=== PATIENT | male | born 1955 | race Hispanic/Latino ===

== ENCOUNTER 2017-09-24 10:57 | Outpatient (CLI) | payer BC ==
[2017-09-24] MEDS ORDERED: DIPRIVAN 10 MG/ML IV ONE ×4 (12:22→14:22)
[2017-09-24] MEDS ORDERED: NACL 0.9% 1000 ML 1,000 ML ONE (12:22)
[2017-09-24] MEDS ORDERED: VERSED ONE (12:22)
[2017-09-24] MEDS ORDERED: DILAUDID ONE (12:23)
--- NOTE | 2017-09-24 15:28 | Anesthesia Consultation ---
Anesthesia Consult and Med Hx Date of service: 09/24/17 - Airway Anesthetic Teeth Evaluation: Good ROM Head & Neck: Adequate Mental/Hyoid Distance: Adequate Mallampati Class: Class III Intubation Access Assessment: Possibly Difficult - Pre-Operative Health Status ASA Pre-Surgery Classification: ASA3 Proposed Anesthetic Plan: MAC - Central Nervous System Hx Back Pain: Yes (right shoulder pain) - Other Systems Hx Obesity: Yes
--- NOTE | 2017-09-24 15:28 | Anesthesia Day of Surgery ---
Anesthesia Day of Surgery - Day of Surgery Patient Examined: Yes Patient H&P Reviewed: Yes Patient is NPO: Yes
[2017-09-24 16:04] VITALS: BP 147/84
--- NOTE | 2017-09-24 19:07 | Magnetic Resonance Report ---
FINAL REPORT PROCEDURE: MR UE JOINT RT WO CON TECHNIQUE: Magnetic resonance imaging of the RIGHT shoulder was performed using standard pulse sequences. CPT 05464 HISTORY: PAIN IN RIGHT SHOULDER COMPARISON: No prior studies are available for comparison. FINDINGS: Nonspecific cystic degenerative changes seen in the superior lateral aspect of the humeral head. Humeral head is high-riding. There is moderate hypertrophic degenerative change seen in the AC joint. Moderate-sized marginal osteophytic spurs project in the inferior aspect of the glenohumeral joint space. Multiple small subchondral cysts are seen in the articular surface of the humeral head. There is marked narrowing of the glenohumeral joint space. There is advanced chondromalacia present. There is mild heterogeneous increased signal seen in the supraspinatus tendon and focal areas of bright increased T2 signal in the distal supraspinatus tendon near its insertion and along the articular surface consistent with partial thickness tears. I do not see evidence of full-thickness tear or retraction. This extends into the superior aspect of the infra spinatus tendon along the articular surface. This is best visualized on sagittal images. This involves the infra spinatus tendon more than the supraspinatus tendon. Teres minor tendon and subscapularis tendon are intact. Long head of the biceps tendon is appropriately located within its groove. Biceps tendon appears intact. There appears to be mild heterogeneous increased signal in the labrum adjacent to the biceps anchor suggesting a SLAP type injury. Minimal joint effusion is present in the glenohumeral joint space. There is a moderate amount of fluid in the long head of the biceps tendon tendon sheath consistent with tenosynovitis. IMPRESSION: Tendinosis and partial-thickness tear supraspinatus and infra spinatus tendon greater in the infra spinatus tendon. No evidence of full-thickness tear or retraction. Advanced chondromalacia glenohumeral joint space. Tenosynovitis long head of the biceps tendon sheath. Minimal joint effusion glenohumeral joint space. Moderate hypertrophic degenerative changes AC joint. Osteoarthritic change AC joint. Moderate-sized marginal osteophytic spurs project inferiorly from the glenohumeral joint space. Abnormal signal supraspinatus tendon. I cannot exclude a SLAP type tear.
== END 2017-09-24 15:35 | disposition home or self-care (01) ==
LOC: MRI 10:57
PROVIDERS: ATTEND Orthopaedic Surgery
DX: M65.811 Other synovitis and tenosynovitis, right shoulder (principal); M94.211 Chondromalacia, right shoulder; M25.411 Effusion, right shoulder; E66.9 Obesity, unspecified
CPT/HCPCS: 73221; J1170; J2250; J2704; J7030

== ENCOUNTER 2018-05-14 08:40 | Day surgery (SDC) | payer BC ==
[~2018-05-14 08:40] MED LIST: NACL 0.9% 1000 ML 1,000 ML IV SCH
--- NOTE | 2018-05-14 09:14 | Anesthesia Consultation ---
Anesthesia Consult and Med Hx Date of service: 05/14/18 - Airway Anesthetic Teeth Evaluation: Good ROM Head & Neck: Adequate Mallampati Class: Class III Intubation Access Assessment: Possibly Difficult - Pre-Operative Health Status ASA Pre-Surgery Classification: ASA2 Proposed Anesthetic Plan: MAC - Pulmonary Hx Sleep Apnea: Yes - Cardiovascular System Hx Hypertension: Yes - Central Nervous System Hx Back Pain: Yes (right shoulder pain) - Gastrointestinal Hx Gastroesophageal Reflux Disease: Yes (dysphagea) - Other Systems Hx Obesity: Yes
--- NOTE | 2018-05-14 09:14 | Anesthesia Day of Surgery ---
Anesthesia Day of Surgery - Day of Surgery Patient Examined: Yes Patient H&P Reviewed: Yes Patient is NPO: Yes
[2018-05-14] MEDS ORDERED: DIPRIVAN 10 MG/ML IV ONE ×2 (09:25)
[2018-05-14] MEDS ORDERED: WATER FOR IRRIG STERILE IR ONE (09:27)
--- NOTE | 2018-05-14 10:42 | Short Stay Summary ---
Short Stay Documentation Date of service: 05/14/18 Narrative H&P: The patient presents for EGD and dilation due to recurrent dysphagia. He has had prior esophageal dilations. 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.") Past Surgical History: Other (right knee surgery) Social history: no significant social history, , lives with family, no smoking, no alcohol abuse - Allergies and Medications Current Medications: Allergies No Known Allergies Allergy (Verified 05/02/18 14:08) Home Medications Medication Instructions Recorded Confirmed Last Taken Type Procardia 60 mg PO 3XW 05/02/18 05/14/18 05/13/18 History Ibuprofen 800 mg PO PRN PRN 05/13/18 05/14/18 05/12/18 History Active Medications Sodium Chloride (Nacl 0.9% 1000 Ml) 1,000 mls @ 50 mls/hr IV DIRECT [facility] Last Admin: 05/14/18 09:20 Dose: 50 mls/hr Documented by: - Physical exam General appearance: no acute distress, well-nourished Integumentary: no rash, no growths, no abnormal pigmentation HEENT: Atraumatic, PERRLA, EOMI, Mucous membr. moist/pink Lungs: Clear to auscultation Breasts: deferred Heart: Regular rate, Normal S1, Normal S2, No murmurs Gastrointestinal: normoactive bowel sounds, no tenderness, no distended, no masses, no guarding, no organomegaly Male Genitourinary: deferred Rectal Exam: deferred Extremities: no ischemia, pulses intact, pulses symmetrical, No edema, normal temperature, normal color, Full ROM Neurological: Normal gait, Normal speech, Strength at 5/5 X4 ext, Normal tone, Sensation intact, Cranial nerves 3-12 NL - Brief post op/procedure progress note Date of procedure: 05/14/18 Procedure: see dictated report Findings: see dictated report Estimated blood loss: minimal Pathology: list (Mid esophageal biopsies for exclusion of eosinophilic esophagitis) Specimen disposition: to lab Condition: stable - Disposition Condition at discharge: Good Disposition: DC-[id number] TO HOME OR SELFCARE - Discharge Diagnoses (1) Dysphagia Status: Acute (2) Esophageal stricture Status: Acute Short Stay Discharge Plan Activity: other (no driving for 24 hours) Weight Bearing Status: Full Weight Bearing Diet: other (soft mechanical diet today) Follow up with: JAC MO MD [Primary Care Provider] - 7 Days
--- NOTE | 2018-05-14 10:47 | Operative Report ---
Operative Report Operative Report: Date of procedure: 05/14/2018 Procedure: Esophagogastroduodenoscopy with balloon dilation to 18 mm, mid esoph ageal biopsies. 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 Post procedure diagnosis: Moderate size hiatal hernia. Peptic stricture with distal esophageal scarring. Normal-appearing midesophagus. Endoscopist: Dr. Rosas Anesthesia: Monitored anesthesia care per anesthesia department Medications: Propofol per anesthesia Estimated blood loss: Minimal After careful discussion of the nature and purpose of the procedure as well as details the technique risks benefits and alternatives consent was obtained. The patient was placed in the left lateral decubitus position and medicated per anesthesia. The tip of the DialedIN EQ 570 video scope was passed per orum under direct vision into the esophagus and advanced into the stomach and descending duodenum. The descending duodenum the duodenal bulb and pylorus were symmetrical and normal. The scope was withdrawn into the stomach and the stomach then gently insufflated with air. The antrum was normal. The stomach was further insufflated and the scope was then retroflexed and partially withdrawn. The fundus and body of the stomach were within normal limits and easily distensible.there was a medium-sized hiatus hernia present in the cardia. The scope was then withdrawn in the forward position. The esophagogastric junction was at [40 cm]. A stricture at the esophagogastric junction was present and there were small diverticula above the stricture and scarring consistent with chronic reflux. The esophageal body was normal throughout. Balloon dilation of the stricture was performed at 18 mm. Mild trauma but no significant bleeding was observed. Multiple mid esophageal biopsies are taken to exclude eosinophilic esophagitis. The procedure was was well tolerated and the patient was observed in recovery. Impressions: Moderate size hiatal hernia. Distal esophageal stricturing with diverticular formation and scarring consistent with chronic reflux disease. No suggestion of Day's by appearance. Status post balloon dilation at 18 mm. Status post mid esophageal biopsies for exclusion of eosinophilic esophagitis. Plan: Await pathology. Redilate as needed. Acid suppression therapy with PPI is advised. Will begin omeprazole. Electronically signed: Mark Rosas MD
[2018-05-14 11:22] VITALS: BP 136/81
== END 2018-05-14 08:41 | disposition home or self-care (01) ==
LOC: GIO 08:40
PROVIDERS: ATTEND Internal Medicine Gastroenterology
DX: K22.2 Esophageal obstruction (principal); R13.10 Dysphagia, unspecified; K44.9 Diaphragmatic hernia without obstruction or gangrene; K21.9 Gastro-esophageal reflux disease without esophagitis; K57.30 Diverticulosis of large intestine without perforation or abscess without bleeding; I10 Essential (primary) hypertension; G47.30 Sleep apnea, unspecified; E66.9 Obesity, unspecified; Z68.28 Body mass index [BMI] 28.0-28.9, adult; Z79.899 Other long term (current) drug therapy; Z98.890 Other specified postprocedural states; Z96.643 Presence of artificial hip joint, bilateral
CPT/HCPCS: 43239; 43249; 88305; C1726; J2704; J7030